=== PATIENT | female | born 1975 | race Caucasian/White ===

== ENCOUNTER 2019-09-23 01:17 | Outpatient (CLI) | payer OTHER, SELFPAY ==
[2019-09-23 19:01] LABS: SARS-CoV-2 RNA PCR Negative
== END 2019-09-23 01:18 | disposition home or self-care (01) ==
LOC: ANHCOVIDDT 01:17
PROVIDERS: PCP Family Medicine; Visit Provider Internal Medicine Gastroenterology
DX: Z01.818 Encounter for other preprocedural examination (principal); Z11.59 Encounter for screening for other viral diseases
CPT/HCPCS: 87635; C9803; U0003

== ENCOUNTER 2019-09-25 02:54 | Day surgery (SDC) | payer OTHER, SELFPAY ==
[2019-09-18 10:07] VITALS: BMI 30.7
[2019-09-25 09:28] VITALS: BP 147/82; PULSE 56; RESP 18; TEMP 36.8; O2SAT 100; BMI 30.6
[2019-09-25] MEDS: LACTATED RINGERS 1,000 ML 150 ML IV CONT (09:37)
--- NOTE | 2019-09-25 10:00 | WPDANESEPPF ---
Anes - Initial Pre Proc Eval Procedure: Operation Date: 09/25/19 10:15 Proposed Procedures p Esophagogastroduodenoscopy - Eddie Robison MD Date/Time: 09/25/19 10:00 Surgeon: Eddie Robison MD Pre Op Diagnosis: Ulcers Patient Data Age: 44 Gender: F Height: 5 ft 7 in Weight: 88.6 kg Last Vital Signs Temp 36.8 C 09/25/19 09:28 Pulse 56 L 09/25/19 09:28 Resp 18 09/25/19 09:28 BP 147/82 H 09/25/19 09:28 Pulse Ox 100 09/25/19 09:28 Allergies Allergy/AdvReac Type Severity Reaction Status Date / Time bee venom protein (honey bee) Allergy Severe Hives Verified 09/25/19 09:27 [bees] amoxicillin Allergy Mild rash Verified 09/25/19 09:27 cefaclor Allergy Unknown Rash Verified 09/25/19 09:27 Home Medications Medication Instructions Recorded Confirmed Type cetirizine 5 mg-pseudoephedrine ER 1 tablet PO Q12H PRN 08/27/19 09/18/19 History 120 mg tablet,extended release,12hr epinephrine 0.3 mg/0.3 mL 0.3 mg SUB-Q ONCE PRN 08/27/19 09/18/19 History injection syringe omeprazole 20 mg capsule,delayed 20 mg PO DAILY 09/02/19 09/18/19 History release levothyroxine 88 mcg PO QAM 09/18/19 09/18/19 History peg 3350-electrolytes 236 240 ml PO Q10M #4000 ml 09/23/19 Rx gram-22.74 gram-6.74 gram-5.86 gram solution Patient hx anesthesia problems: none Family hx anesthesia problems: none PMFSH Past Medical History Medical History Alternating constipation and diarrhea Anxiety Dyspepsia Hypothyroid Thyroid disease Weight loss Surgical History Surgical History H/O removal of cyst Family History Family History Father CAD (coronary artery disease) ESRD (end stage renal disease) Grandparent Breast cancer Mother Uterine cancer Endometriosis Hypothyroidism Gout Unknown Cholelithiasis Other Parkinson disease Family history of suicide Social History Social History Smoking status: Never smoker Alcohol intake: current Anes - Eval Final PreProcedure Day of Procedure 09/25/19 10:00 Patient weight: obese Heart: regular rate and rhythm Lungs: clear to auscultation Airway: Mallampati scale class II Neurological: alert and oriented Last oral intake: >/= 8 hours ASA classification: III Emergent: no Anesthetic plan: proceed Anesthesia type and monitoring: general GIVS and standard monitoring Informed Consent: The patient's anesthetic plan and its attendant risks and benefits were discussed with the patient/family/POA. Questions were solicited and answers provided to the satisfaction of the patient/family/POA.
--- NOTE | 2019-09-25 10:16 | SUR.PREOP ---
pt notified of 20 min delay in start time of procedure
--- NOTE | 2019-09-25 10:57 | WPDHPUPDATE1 ---
History and Physical Update Update Date/Time: 09/25/19 10:57 History and Physical has been reviewed, including an updated exam of the patient. There are NO changes in the patient's condition. Risks, benefits, and alternatives have been discussed and questions answered. Patient agrees to proceed with procedure.
[2019-09-25 11:14] VITALS: BP 118/76; PULSE 51; RESP 16; O2SAT 99
[2019-09-25 11:24] VITALS: BP 129/79; PULSE 48; RESP 16; O2SAT 100
[2019-09-25 11:33] VITALS: BP 123/74; PULSE 46; RESP 16; O2SAT 100
--- NOTE | 2019-09-25 11:47 | SUR.PHASEII ---
[facility] CALLED TO ARRANGE HIDA SCAN FOR PT. PT AWARE OF APPOINTMENT.
== END 2019-09-25 11:55 | disposition home or self-care (01) ==
PROVIDERS: PCP Family Medicine; Visit Provider Internal Medicine Gastroenterology
PROC: 0DJ08ZZ Inspection of Upper Intestinal Tract, Via Natural or Artificial Opening Endoscopic (ICD-10-PCS; CPT 43235; principal; 2019-09-25 10:15)
DX: R10.13 Epigastric pain (principal); R19.7 Diarrhea, unspecified; K29.50 Unspecified chronic gastritis without bleeding; D13.0 Benign neoplasm of esophagus; K21.9 Gastro-esophageal reflux disease without esophagitis; E03.9 Hypothyroidism, unspecified; F41.9 Anxiety disorder, unspecified; E66.9 Obesity, unspecified; Z68.30 Body mass index [BMI] 30.0-30.9, adult; Z79.899 Other long term (current) drug therapy
CPT/HCPCS: 43239; 88305; J2001; J2704; J7120

== ENCOUNTER 2019-10-02 09:28 | Outpatient (CLI) | payer OTHER, SELFPAY ==
--- NOTE | ~2019-10-02 | NM_ITS ---
EXAMINATION: NM hepatobiliary w pharm DATE: 10/02/2019 12:01 INDICATION: Other specified symptoms and signs involving the digestive system. COMPARISON: None. TECHNIQUE: 4.9 mCi Tc-99m mebrofenin (Choletec) was administered intravenously. Scintigraphic images of the abdomen were obtained for one hour. Then, 1.9 mcg sincalide (Kinevac) IV was administered, an d imaging was continued for 30 minutes. FINDINGS: There is normal clearance of radiotracer from the blood pool. There is homogeneous tracer u ptake by the liver. Activity progresses to the bowel and gallbladder. Gallbladder ejection fraction (GBEF) was 0%. Note that most patients with gallbladder dysfunction have GBEF < 35%, which overlaps w ith the broad normal range of 10-90%. IMPRESSION: 1. Low gallbladder ejection fraction, consistent with gallbladder dysfunction and/or chronic cholecy stitis. Reviewed, dictated and finalized at location A. IMPRESSION: 1. Low gallbladder ejection fraction, consistent with gallbladder dysfunction and/or chronic cholecystitis.
== END 2019-10-02 09:29 | disposition home or self-care (01) ==
LOC: ANHIMG 09:32
PROVIDERS: PCP Family Medicine; Visit Provider Internal Medicine Gastroenterology
DX: R19.8 Other specified symptoms and signs involving the digestive system and abdomen (principal); R10.10 Upper abdominal pain, unspecified
CPT/HCPCS: 78227; A9537; J2805

== ENCOUNTER 2020-02-24 10:24 | Outpatient (CLI) | payer BC, SELFPAY ==
[2020-02-24 10:47] LABS: Hematocrit 42.9 % (37.0-47.0); Hemoglobin 14.7 g/dL (12.0-15.0); Mean Corpuscular HGB Conc 34.3 g/dl (32-36); Mean Corpuscular Hemoglobin 31.6 pg (26-34); Mean Corpuscular Volume 92.3 fl (80-100); Mean Platelet Volume 9.7 fl (7.4-10.4); Platelet Count Result 210 k/mm3 (150-375); Red Blood Count 4.65 M/mm3 (4.2-5.4); Red Cell Distribution Width 12.8 % (11.5-14.5); White Blood Count 6.8 K/mm3 (4.5-10.0)
[2020-02-24 10:58] LABS: Alanine Aminotransferase 31 U/L (4-35); Albumin Level 4.4 g/dL (3.5-5.1); Alkaline Phosphatase 73 U/L (38-126); Anion Gap 8 mmol/L (8-16); Aspartate Amino Transferase 33 U/L (14-36); Bilirubin,Total 0.7 mg/dL (0.2-1.3); Blood Urea Nitrogen 14 mg/dL (7-17); Calcium 9.6 mg/dL (8.4-10.2); Carbon Dioxide 31 mmol/L (22-30); Chloride 101 mmol/L (98-107); Estimated Glomerular Filt Rate > 60; Glucose 89 mg/dL (65-105); Potassium 4.1 mmol/L (3.4-5.0); Sodium 140 mmol/L (137-145)
== END 2020-02-24 10:25 | disposition home or self-care (01) ==
LOC: ANHLAB 10:25
PROVIDERS: PCP Family Medicine; Visit Provider Nurse Practitioner Family
DX: R10.9 Unspecified abdominal pain (principal)
CPT/HCPCS: 36415; 80053; 85027

== ENCOUNTER → 2020-07-05 00:22 | Outpatient (CLI) | payer BC, SELFPAY ==
[2020-07-05 20:47] LABS: SARS-CoV-2 RNA PCR Negative
== END ==
PROVIDERS: PCP Family Medicine; Visit Provider Internal Medicine Gastroenterology
DX: Z01.812 Encounter for preprocedural laboratory examination (principal); Z20.822 Contact with and (suspected) exposure to COVID-19
CPT/HCPCS: C9803; U0003; U0005

== ENCOUNTER 2020-07-08 00:43 | Day surgery (SDC) | payer BC, SELFPAY ==
[2020-06-28 14:18] VITALS: BMI 29.1
[2020-07-08 08:48] VITALS: BP 142/70; PULSE 84; RESP 18; TEMP 36.2; O2SAT 100
[2020-07-08] MEDS: LACTATED RINGERS 1,000 ML 150 ML IV CONT (08:57)
--- NOTE | 2020-07-08 09:40 | WPDANESEPPF ---
Anes - Initial Pre Proc Eval Procedure: Operation Date: 07/08/20 10:00 Proposed Procedures p Colonoscopy - Eddie Robison MD Date/Time: 07/08/20 09:40 Surgeon: Eddie Robison MD Pre Op Diagnosis: change in bowel habits Patient Data Age: 44 Gender: F Height: 5 ft 7 in Weight: 84.7 kg Last Vital Signs Temp 97.2 F L 07/08/20 08:48 Pulse 84 07/08/20 08:48 Resp 18 07/08/20 08:48 BP 142/70 H 07/08/20 08:48 Pulse Ox 100 07/08/20 08:48 Allergies Allergy/AdvReac Type Severity Reaction Status Date / Time bee venom protein (honey bee) Allergy Severe Hives Verified 07/08/20 08:43 [bees] amoxicillin Allergy Mild rash Verified 07/08/20 08:43 cefaclor Allergy Unknown Rash Verified 07/08/20 08:43 Home Medications Medication Instructions Recorded Confirmed Type epinephrine 0.3 mg/0.3 mL 0.3 mg SUB-Q ONCE PRN 08/27/19 06/28/20 History injection syringe levothyroxine 88 mcg PO QAM 09/18/19 06/28/20 History omeprazole 20 mg capsule,delayed 20 mg PO DAILY #30 cap 05/13/20 07/08/20 Rx release Patient hx anesthesia problems: none Family hx anesthesia problems: none PMFSH Past Medical History Medical History Abdominal pain Alternating constipation and diarrhea Anxiety Dyspepsia Gall bladder disease Hypothyroid Overweight (BMI 25.0-29.9) Thyroid disease Weight loss Surgical History Surgical History H/O removal of cyst Family History Family History Father CAD (coronary artery disease) ESRD (end stage renal disease) Grandparent Breast cancer Mother Uterine cancer Endometriosis Hypothyroidism Gout Unknown Cholelithiasis Other Parkinson disease Family history of suicide Social History Social History (Updated 05/13/20 @ 14:11 by Jeanne Diez CMA) Smoking status: Never smoker Alcohol intake: current Drinks per week: 3 Substance use: never Substance use type: does not use Living arrangements: with family Gender identity (if verbalized by the patient): Female Sexual Orientation (if Verbalized by the Patient): Straight or Heterosexual Spiritual care concerns: No Anes - Eval Final PreProcedure Day of Procedure 07/08/20 09:40 Patient weight: overweight Heart: regular rate and rhythm Lungs: clear to auscultation Airway: Mallampati scale class II Neurological: alert and oriented Last oral intake: >/= 8 hours ASA classification: II Emergent: no Anesthetic plan: proceed Anesthesia type and monitoring: general GIVS and standard monitoring Informed Consent: The patient's anesthetic plan and its attendant risks and benefits were discussed with the patient/family/POA. Questions were solicited and answers provided to the satisfaction of the patient/family/POA.
--- NOTE | 2020-07-08 10:02 | PM.HPGS ---
History of Present Illness History of Present Illness Consent: Risks, benefits, and alternatives have been discussed and questions answered. Patient agrees to proceed with procedure. Chief complaint: change in bowel habits Narrative: Yashira Hardin is a 44 year old female with ruq pain, had few times diarrhea but now resolved and feeling better. EGD with normal duodenal biopsies. Review of Systems Constitutional: Constitutional: Denies headache(s) and Denies weakness Eyes: Eyes: Denies blurry vision ENT: Reports Normal hearing present, Denies headache(s) and Denies neck pain Cardiovascular: Cardiovascular: Denies chest pain and Denies dyspnea Respiratory: Respiratory: Denies dyspnea Gastrointestinal: Gastrointestinal: Reports no additional gastrointestinal complaints Genitourinary: Genitourinary: Denies dysuria Musculoskeletal: Musculoskeletal: Denies neck pain Integumentary/Breasts: Skin/Breast: Denies dry skin Neurologic: Reports Normal hearing present, Denies headache(s) and Denies weakness Psychiatric: Psychiatric: Denies anxiety Endocrine: Endocrine: Denies change in body appearance Hematologic/Lymphatic: Hematologic/Lymphatic: Denies easy bleeding Allergic/Immunologic: Allergic/Immunologic: Denies urticaria PMFSH Past Medical History Medical History Abdominal pain Alternating constipation and diarrhea Anxiety Dyspepsia Gall bladder disease Hypothyroid Overweight (BMI 25.0-29.9) Thyroid disease Weight loss Surgical History Surgical History H/O removal of cyst Family History Family History Father CAD (coronary artery disease) ESRD (end stage renal disease) Grandparent Breast cancer Mother Uterine cancer Endometriosis Hypothyroidism Gout Unknown Cholelithiasis Other Parkinson disease Family history of suicide Social History Social History (Updated 05/13/20 @ 14:11 by Jeanne Diez CMA) Smoking status: Never smoker Alcohol intake: current Drinks per week: 3 Substance use: never Substance use type: does not use Living arrangements: with family Gender identity (if verbalized by the patient): Female Sexual Orientation (if Verbalized by the Patient): Straight or Heterosexual Spiritual care concerns: No Meds Home Medications and Allergies Home Medications Medication Instructions Recorded Confirmed Type epinephrine 0.3 mg/0.3 mL 0.3 mg SUB-Q ONCE PRN 08/27/19 06/28/20 History injection syringe levothyroxine 88 mcg PO QAM 09/18/19 06/28/20 History omeprazole 20 mg capsule,delayed 20 mg PO DAILY #30 cap 05/13/20 07/08/20 Rx release Allergies Allergy/AdvReac Type Severity Reaction Status Date / Time bee venom protein (honey bee) Allergy Severe Hives Verified 07/08/20 08:43 [bees] amoxicillin Allergy Mild rash Verified 07/08/20 08:43 cefaclor Allergy Unknown Rash Verified 07/08/20 08:43 Vital Signs Vital Signs - 24 hr 07/08/20 08:48 Temperature 97.2 F L Pulse Rate 84 Respiratory Rate 18 Blood Pressure 142/70 H Pulse Oximetry 100 Exam Const: General: comfortable and no acute distress HENMT: General nose exam: Normal nares present Eyes: General: appearance normal, both eyes and all related structures Neck: Neck: no JVD Resp: Auscultation: clear to auscultation bilaterally Cardio: Rate: regular rate Rhythm: regular rhythm GI: Inspection: non-distended GI Palp: Yes Soft to palpation Skin: General skin exam: normal color Neuro: General: gait normal Speech: normal speech Extrem: General: normal to inspection Psych: Mental Status: mental status grossly normal Assessment and Plan Assessment and plan (1) Abdominal pain: Code(s): R10.9 - Unspecified abdominal pain Status: Acute Assessment and P
[2020-07-08 10:24] VITALS: BP 109/73; PULSE 61; RESP 19; O2SAT 100
[2020-07-08 10:34] VITALS: BP 110/67; PULSE 55; RESP 18; O2SAT 100
[2020-07-08 10:44] VITALS: BP 112/74; PULSE 52; RESP 18; O2SAT 100
== END 2020-07-08 10:58 | disposition home or self-care (01) ==
PROVIDERS: PCP Family Medicine; Visit Provider Internal Medicine Gastroenterology
PROC: 0DJD8ZZ Inspection of Lower Intestinal Tract, Via Natural or Artificial Opening Endoscopic (ICD-10-PCS; CPT 45378; principal; 2020-07-08 10:00)
DX: R14.0 Abdominal distension (gaseous) (principal); K63.5 Polyp of colon; R19.4 Change in bowel habit; R10.11 Right upper quadrant pain; K64.8 Other hemorrhoids; F41.9 Anxiety disorder, unspecified; K82.9 Disease of gallbladder, unspecified; E03.9 Hypothyroidism, unspecified
CPT/HCPCS: 45385; 88305; J2704; J7120

== ENCOUNTER 2022-03-07 16:48 | Emergency (ER) | payer SELFPAY ==
[2022-03-07 16:59] VITALS: BP 161/99; PULSE 85; RESP 20; TEMP 37.1; O2SAT 98
--- NOTE | 2022-03-07 19:22 | PC.NURSE ---
Called one to place into room without response.
--- NOTE | 2022-03-07 19:34 | PC.NURSE ---
Patient called back to a room 3 times. no answer
--- NOTE | 2022-03-07 20:08 | PC.NURSE ---
first call [id number], no answer second call [id number], no answer.
== END 2022-03-07 19:00 | disposition left against medical advice (07) ==
PROVIDERS: PCP Family Medicine
DX: L50.9 Urticaria, unspecified (principal)
CPT/HCPCS: 99199